=== PATIENT | male | born 1995 ===

== ENCOUNTER 2017-12-15 10:07 | Emergency (ER) | payer MEDICAID, OTHER ==
[2017-12-15 10:12] VITALS: BMI 23.4
[2017-12-15 11:37] LABS: BASO # 0.1 K/uL (0.0-0.2); BASO % 1.1 % (0.0-2.0); EOS # 0.2 K/uL (0.0-0.7); EOS % 3.1 % (0.0-4.0); HEMOGLOBIN 15.8 g/dL (12.0-18.0); LYMPH # 2.2 K/uL (1.0-4.3); LYMPH % 36.3 % (20.0-40.0); MEAN CELL VOLUME 90.3 fl (80.0-94.0); MEAN CORPUSCULAR HEMOGLOBIN 30.6 pg (27.0-31.0); MEAN CORPUSCULAR HGB CONC 33.8 g/dL (33.0-37.0); MEAN PLATELET VOLUME 8.7 fl (7.2-11.7); MONO # 0.5 K/uL (0.0-0.8); MONO % 7.9 % (0.0-10.0); NEUT # 3.1 K/uL (1.8-7.0); NEUT % 51.6 % (50.0-75.0); NRBC % 0.1 % (0.0-0.0); RBC 5.15 Mil/uL (4.40-5.90); RED CELL DISTRIBUTION WIDTH 13.4 % (11.5-14.5); WHITE BLOOD COUNT 6.1 K/uL (4.8-10.8)
[2017-12-15 11:48] LABS: ALB/GLOB RATIO 1.4 (1.0-2.1); ALBUMIN 4.6 g/dL (3.5-5.0); ALT/SGPT 46 U/L (21-72); AST/SGOT 33 U/L (17-59); BLOOD UREA NITROGEN 16 mg/dl (9-20); CALCIUM 9.6 mg/dL (8.4-10.2); GFR AFRICAN-AMERICAN > 60; GFR NON-AFRICAN AMERICAN > 60
--- NOTE | 2017-12-15 11:48 | CT ---
Date of service: 12/15/2017 PROCEDURE: CT HEAD WITHOUT CONTRAST. HISTORY: Headaches, tingling in extremities COMPARISON: None available. TECHNIQUE: Axial computed tomography images were obtained through the head/brain without intravenous contrast. Radiation dose: Total exam DLP = 824.94 mGy-cm. This CT exam was performed using one or more of the following dose reduction techniques: Automated exposure control, adjustment of the mA and/or kV according to patient size, and/or use of iterative reconstruction technique. FINDINGS: HEMORRHAGE: No intracranial hemorrhage. BRAIN: No mass effect or edema. No atrophy or chronic microvascular ischemic changes. VENTRICLES: Unremarkable. No hydrocephalus. CALVARIUM: Unremarkable. PARANASAL SINUSES: Unremarkable as visualized. No significant inflammatory changes. MASTOID AIR CELLS: Unremarkable as visualized. No inflammatory changes. OTHER FINDINGS: None. IMPRESSION: Normal CT of the Head.
--- NOTE | 2017-12-15 12:42 | ED PDOC ---
HPI: Headache Time Seen by Provider: 12/15/17 10:10 Chief Complaint (Nursing): Headache Chief Complaint (Provider): Headache x 2-3 months, tingling in extremies x 2 weeks History Per: Patient History/Exam Limitations: no limitations Onset/Duration Of Symptoms: Days Current Symptoms Are (Timing): Better Additional Complaint(s): 22 yo male with no medical problems presents with headache for 2-3 months. Pt states the last week has has been feeling like his hands and lower legs are falling asleep. Pt. states this happens when he lays down to go to bed and when he first wakes up in the morning. Pt denies back or neck pain. Pt denies N/V/D. Past Medical History Reviewed: Historical Data, Nursing Documentation, Vital Signs Vital Signs: Last Vital Signs Temp 98.2 F 12/15/17 10:10 Pulse 74 12/15/17 10:10 Resp BP 116/71 12/15/17 10:10 Pulse Ox 98 12/15/17 10:10 - Medical History PMH: No Chronic Diseases - Surgical History Surgical History: No Surg Hx - Family History Family History: States: No Known Family Hx - Living Arrangements Living Arrangements: With Family - Social History Current smoker - smoking cessation education provided: No - Allergies Allergies/Adverse Reactions: Allergies Allergy/AdvReac Type Severity Reaction Status Date / Time No Known Allergies Allergy Verified 12/15/17 10:39 Review of Systems ROS Statement: Except As Marked, All Systems Reviewed And Found Negative Constitutional: Negative for: Fever, Chills Cardiovascular: Negative for: Chest Pain Respiratory: Negative for: Cough, Shortness of Breath Gastrointestinal: Negative for: Nausea, Vomiting, Abdominal Pain, Diarrhea Neurological: Positive for: Headache, Other. Negative for: Weakness Physical Exam - Reviewed Nursing Documentation Reviewed: Yes Vital Signs Reviewed: Yes - Physical Exam Appears: Positive for: Well, Non-toxic, No Acute Distress Head Exam: Positive for: ATRAUMATIC, NORMAL INSPECTION, NORMOCEPHALIC Skin: Positive for: Normal Color, Warm, DRY Eye Exam: Positive for: Normal appearance ENT: Positive for: Normal ENT Inspection Neck: Positive for: Normal, Painless ROM Cardiovascular/Chest: Positive for: Regular Rate, Rhythm Respiratory: Positive for: CNT, Normal Breath Sounds Back: Positive for: Normal Inspection Extremity: Positive for: Normal ROM Neurologic/Psych: Positive for: Alert, benefits coordinator II-XII, Oriented, Gait. Negative for : Aphasia, Facial Droop - Laboratory Results Result Diagrams: 12/15/17 11:31 12/15/17 11:31 - ECG O2 Sat by Pulse Oximetry: 98 Medical Decision Making Medical Decision Making: Pt without PMD. Will refer to the clinic. Head CT and labs normal. Disposition - Clinical Impression Clinical Impression: Paresthesia - Patient ED Disposition Is Patient to be Admitted: No - Disposition Referrals: [facility] [Outside] Disposition: Routine/Home Disposition Time: 12:43 Condition: STABLE Instructions: Paresthesias (DC)
[2017-12-15 17:50] VITALS: BP 119/70; PULSE 78; RESP 18; TEMP 98; O2SAT 100
== END 2017-12-15 13:15 | disposition home or self-care (01) ==
LOC: MERGE 10:07 → H.ER 10:07
DX: R20.0 Anesthesia of skin (principal)

== ENCOUNTER 2018-04-17 22:43 | Emergency (ER) | payer OTHER, MEDICAID ==
[2018-04-17 22:43] VITALS: BMI 23.4
[2018-04-17 23:07] VITALS: BP 137/69; PULSE 69; RESP 18; TEMP 98.2; O2SAT 100
--- NOTE | 2018-04-17 23:33 | ED PDOC ---
HPI: General Adult Time Seen by Provider: 04/17/18 23:31 Chief Complaint (Nursing): Trauma Chief Complaint (Provider): fall History Per: Patient (22 y/o male here for evaluation of skateboarding injury today at 5pm. Patient states he fell off skateboard and landed on right hip. Notes abrasion right hand but no difficulty with movement of wrist. Patient states he has had difficulty walking and requests hip xry. Tetanus up to date) Past Medical History Reviewed: Historical Data, Nursing Documentation, Vital Signs Vital Signs: Last Vital Signs Temp 98.2 F 04/17/18 23:05 Pulse 69 04/17/18 23:05 Resp 18 04/17/18 23:05 BP 137/69 04/17/18 23:05 Pulse Ox 100 04/17/18 23:05 - Family History Family History: States: No Known Family Hx - Home Medications Home Medications: Ambulatory Orders Medication Instructions Recorded Azithromycin [Zithromax] 1 gm PO ONCE #1 tab 12/19/17 Ibuprofen [Motrin] 600 mg PO Q8 PRN #21 tab 04/18/18 - Allergies Allergies/Adverse Reactions: Allergies Allergy/AdvReac Type Severity Reaction Status Date / Time No Known Allergies Allergy Verified 04/17/18 23:05 Review of Systems ROS Statement: Except As Marked, All Systems Reviewed And Found Negative Physical Exam - Reviewed Nursing Documentation Reviewed: Yes Vital Signs Reviewed: Yes - Physical Exam Appears: Positive for: Well, Non-toxic, No Acute Distress Head Exam: Positive for: ATRAUMATIC, NORMAL INSPECTION, NORMOCEPHALIC Skin: Positive for: Normal Color, Warm, DRY Eye Exam: Positive for: EOMI, Normal appearance, PERRL ENT: Positive for: Normal ENT Inspection Neck: Positive for: Normal, Painless ROM Cardiovascular/Chest: Positive for: Regular Rate, Rhythm Respiratory: Positive for: CNT, Normal Breath Sounds Gastrointestinal/Abdominal: Positive for: Normal Exam, Soft Back: Positive for: Normal Inspection Extremity: Positive for: Normal ROM, Tenderness (tenderness noted right iliac crest. FROM of hip. Nontender thigh), Other (abrasion noted thenar prominence right hand.) Neurologic/Psych: Positive for: Alert, Oriented - ECG O2 Sat by Pulse Oximetry: 100 - Progress ED Course And Treament: Hand wound cleansed in ED and bacitracin ointment placed subsequently. Hip xry: neg for fx Disposition - Clinical Impression Clinical Impression: Contusion of hip, right, Abrasion of hand, left - Patient ED Disposition Is Patient to be Admitted: No - Disposition Disposition: Routine/Home Disposition Time: 00:26 Condition: FAIR Prescriptions: Ibuprofen [Motrin] 600 mg PO Q8 PRN #21 tab PRN Reason: Pain, Moderate (4-7) Instructions: Skin Abrasions (DC), Taking Care of Bruises, Hip Pain (DC) Forms: [facility] ED School/Work Excuse
--- NOTE | 2018-04-18 08:34 | RAD ---
PROCEDURE: Right Hip Radiographs. HISTORY: right hip injury COMPARISON: None. FINDINGS: BONES: Frontal view of the pelvis and frontal and frogleg views of the right hip were performed for right hip injury. No fracture is seen. No femoral head flattening is noted. Bony pelvis is intact. No sacroiliac joint widening or symphysis widening is seen. No significant spurring from the acetabular region is noted. 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 This should be further correlated clinically. JOINTS: No significant joint space narrowing. Intact sacroiliac joints. SOFT TISSUES: Normal. OTHER FINDINGS: None. IMPRESSION: No fracture. 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
--- NOTE | 2018-04-18 20:39 | ED PDOC ---
ED Additional Note - Date & Time of Evaluation Date of Evaluation: 04/18/18 - Physician Additional Note Physician Additional Note: PA performing radiology call backs: Right femoral x-ray from 04/17/18: No fracture. 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 I spoke with patient re: above findings and need for f/u as an outpatient w/ orthopedist as needed for chronic Right hip pain or discuss with PMD. Patient d emonstrated understanding and will contact PMD.
== END 2018-04-18 01:05 | disposition home or self-care (01) ==
LOC: H.ER 22:43
DX: S70.01XA Contusion of right hip, initial encounter (principal); S60.512A Abrasion of left hand, initial encounter; W19.XXXA Unspecified fall, initial encounter; Y93.51 Activity, roller skating (inline) and skateboarding

== ENCOUNTER 2018-04-27 18:30 | Emergency (ER) | payer MEDICAID, OTHER ==
[2018-04-27 18:30] VITALS: BMI 23.4
[2018-04-27 18:44] VITALS: RESP 18
[2018-04-27 19:44] LABS: BASO # 0.1 K/uL (0.0-0.2); EOS # 0.2 K/uL (0.0-0.7); EOS % 2.4 % (0.0-4.0); HEMOGLOBIN 14.9 g/dL (12.0-18.0); LYMPH # 2.4 K/uL (1.0-4.3); LYMPH % 37.9 % (20.0-40.0); MEAN CELL VOLUME 90.5 fl (80.0-94.0); MEAN CORPUSCULAR HGB CONC 33.1 g/dL (33.0-37.0); MEAN PLATELET VOLUME 8.9 fl (7.2-11.7); MONO # 0.4 K/uL (0.0-0.8); MONO % 6.7 % (0.0-10.0); NEUT # 3.3 K/uL (1.8-7.0); NRBC % 0.1 % (0.0-0.0); RBC 4.96 Mil/uL (4.40-5.90); RED CELL DISTRIBUTION WIDTH 13.1 % (11.5-14.5); WHITE BLOOD COUNT 6.4 K/uL (4.8-10.8)
[2018-04-27 19:54] LABS: BLOOD UREA NITROGEN 20 mg/dl (9-20); CALCIUM 9.5 mg/dL (8.4-10.2); GFR NON-AFRICAN AMERICAN > 60
--- NOTE | 2018-04-27 19:54 | ED PDOC ---
HPI: Chest Pain Time Seen by Provider: 04/27/18 18:46 Chief Complaint (Nursing): Chest Pain Chief Complaint (Provider): Chest Pain History Per: Patient History/Exam Limitations: no limitations Onset/Duration Of Symptoms: Days (x3) Current Symptoms Are (Timing): Still Present Additional Complaint(s): 22 year old male presents to ED with a complaint of worsening right-sided chest pain associated with tactile fever, nausea, and productive cough of yellow and green sputum for 3 days. He denies any bloody cough, sick contacts, radiating of pain, or vomiting. PCP: Dr. Blue Velez Past Medical History Reviewed: Historical Data, Nursing Documentation, Vital Signs Vital Signs: Last Vital Signs Temp 98.1 F 04/27/18 18:38 Pulse 82 04/27/18 18:38 Resp 18 04/27/18 18:38 BP 120/75 04/27/18 18:38 Pulse Ox 99 04/27/18 18:38 - Family History Family History: States: Unknown Family Hx - Home Medications Home Medications: Ambulatory Orders Medication Instructions Recorded Azithromycin [Zithromax] 1 gm PO ONCE #1 tab 12/19/17 Ibuprofen [Motrin] 600 mg PO Q8 PRN #21 tab 04/18/18 Azithromycin [Z-Ezequiel] 250 mg PO DAILY #6 tab 04/27/18 - Allergies Allergies/Adverse Reactions: Allergies Allergy/AdvReac Type Severity Reaction Status Date / Time No Known Allergies Allergy Verified 04/17/18 23:05 Review of Systems ROS Statement: Except As Marked, All Systems Reviewed And Found Negative Constitutional: Positive for: Fever (tactile) Cardiovascular: Positive for: Chest Pain (right-sided) Respiratory: Positive for: Cough, Sputum (yellow/green). Negative for: Hemoptysis Gastrointestinal: Positive for: Nausea. Negative for: Vomiting Physical Exam - Reviewed Nursing Documentation Reviewed: Yes Vital Signs Reviewed: Yes - Physical Exam Appears: Positive for: Uncomfortable Head Exam: Positive for: ATRAUMATIC, NORMAL INSPECTION, NORMOCEPHALIC Skin: Positive for: Normal Color Eye Exam: Positive for: Normal appearance, EOMI, PERRL ENT: Positive for: Normal ENT Inspection Neck: Positive for: Normal Cardiovascular/Chest: Positive for: Regular Rate, Rhythm, Other (reproducible right-sided chest pain). Negative for: Chest Non Tender Respiratory: Positive for: Normal Breath Sounds. Negative for: Wheezing, Respiratory Distress Gastrointestinal/Abdominal: Positive for: Normal Exam, Soft. Negative for: Tenderness Extremity: Positive for: Normal ROM (upper/lower) Neurologic/Psych: Positive for: Alert, Oriented. Negative for: Motor/Sensory Deficits - Laboratory Results Result Diagrams: 04/27/18 19:27 04/27/18 19:27 - ECG O2 Sat by Pulse Oximetry: 99 (RA) Pulse Ox Interpretation: Normal Medical Decision Making Medical Decision Making: Time: 1924 Initial Plan: work-up for possible pneumonia. * Labs * CXR * EKG * Toradol 15mg IVP * Influenza A B Time: 1929 --EKG: NSR at 69 BMP. No indication of cardiac ideology or pain. Time: 2044 --Labs reviewed: no clinically significant abnormality. Negative for influenza. Upon provider reevaluation, patient is feeling better, medically stable, and requires no further treatment in the ED at this time. Patient will be discharged home with Rx for Z-ezequiel. Counseling was provided and all questions were answered regarding diagnosis. There is agreement to discharge plan. Return if symptoms persist or worsen. Scribe Attestation: Documented by Natasha Layne, acting as a scribe for Alana Garduno MD. Provider Scribe Attestation: All medical record entries made by the Scribe were at my direction and personally dictated by me. I have reviewed the chart and agree that the record accurately reflects my personal performance of the history, physical exam, medical decision making, and the department course for this patient. I have also personally directed, reviewed, and agree with the discharge instructions and disposition. Disposition - Clinical Impression Clinical Impression: Chest wall pain, Upper respiratory infection - Patient ED Disposition Is Patient to be Admitted: No Counseled Patient/Family Regarding: Studies Performed, Diagnosis, Rx Given - Disposition Disposition: Routine/Home Disposition Time: 20:45 Condition: STABLE Additional Instructions: Take antibiotics as prescribed. Follow up with primary medical doctor. Return to the emergency department if symptoms worsen or if new symptoms develop. Prescriptions: Azithromycin [Z-Ezequiel] 250 mg PO DAILY #6 tab Instructions: Chest Pain That Is Not Caused by the Heart (DC) Forms: [employer] (Bel[place]ian) Print Language: GE[place]
[2018-04-27 20:47] VITALS: BP 126/77; PULSE 79; TEMP 98.4
[2018-04-27 21:15] VITALS: O2SAT 99
--- NOTE | 2018-04-28 10:16 | RAD ---
Date of service: 04/27/2018 HISTORY: Right-sided chest pain and cough COMPARISON: No prior. TECHNIQUE: Chest PA and lateral FINDINGS: LINES AND TUBES: None. LUNG AND PLEURA: The lungs are well inflated and clear. No pleural effusion or pneumothorax. HEART AND MEDIASTINUM: The heart is not enlarged. No aortic atherosclerotic calcification present. The hilar and mediastinal contours are within normal limits. SKELETAL STRUCTURES: The bony structures are within normal limits for the patient's age. VISUALIZED UPPER ABDOMEN: Normal. OTHER FINDINGS: None. IMPRESSION: No active pulmonary disease.
== END 2018-04-27 20:47 | disposition home or self-care (01) ==
LOC: H.ER 18:30
DX: R07.89 Other chest pain (principal); J06.9 Acute upper respiratory infection, unspecified
CPT/HCPCS: 71046; 80048; 85025; 87804; 96374; 99284; J1885